=== PATIENT | male | born 1990 | race Hispanic/Latino ===

== ENCOUNTER 2017-10-14 13:59 | Emergency (ER) | payer OTHER ==
[~2017-10-14] VITALS: Ht 167.6 cm; Wt 70.0 kg
[2017-10-14] MEDS ORDERED: MOTRIN800 MG PO (14:57)
[2017-10-14 15:01] VITALS: BP 130/88
== END 2017-10-14 15:07 | disposition home or self-care (01) | DRG 563 ==
LOC: ED 13:59
DX: S46.911A Strain of unspecified muscle, fascia and tendon at shoulder and upper arm level, right arm, initial encounter (principal); S40.011A Contusion of right shoulder, initial encounter; W11.XXXA Fall on and from ladder, initial encounter; Y93.89 Activity, other specified; Y92.74 Orchard as the place of occurrence of the external cause; Y99.0 Civilian activity done for income or pay